=== PATIENT | female | born 2005 | race Two or more races ===

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

== ENCOUNTER 2024-01-29 11:30 | Outpatient (CLI) | payer OTHER | END 2024-01-29 11:31 | disposition home or self-care (01) | LOC: PRENATAL 11:30 | PROVIDERS: ATTEND Obstetrics & Gynecology Maternal & Fetal Medicine | DX: O26.843 Uterine size-date discrepancy, third trimester (principal); O36.8130 Decreased fetal movements, third trimester, not applicable or unspecified; Z3A.28 28 weeks gestation of pregnancy ==

== ENCOUNTER → 2024-03-06 14:02 | Outpatient (CLI) | payer OTHER | END | disposition home or self-care (01) | LOC: PRENATAL 14:02 | PROVIDERS: ATTEND Obstetrics & Gynecology Maternal & Fetal Medicine | DX: O26.849 Uterine size-date discrepancy, unspecified trimester (principal); O36.8199 Decreased fetal movements, unspecified trimester, other fetus; O60.00 Preterm labor without delivery, unspecified trimester; O98.919 Unspecified maternal infectious and parasitic disease complicating pregnancy, unspecified trimester; Z3A.34 34 weeks gestation of pregnancy ==

== ENCOUNTER 2024-03-18 10:00 | Outpatient (CLI) | payer OTHER ==
[2024-03-18 09:22] VITALS: BP 108/72
[2024-03-18] MEDS ORDERED: RINGERS SOLUTION,LACTATED 1,000 ML IV SCH (10:30)
[2024-03-18] MEDS ORDERED: FLUCONAZOLE 150 MG TABLET PO NR (10:35)
[2024-03-18 10:49] LABS: URINE APPEARANCE Clear; URINE BILIRRUBIN Negative (NEGATIVE); URINE BLOOD Negative; URINE COLOR Yellow; URINE GLUCOSE Negative (NEGATIVE); URINE KETONE Negative (NEGATIVE); URINE LEUKOCYTE Large; URINE NITRATE Negative; URINE PROTEIN Negative (NEGATIVE); URINE UROBILINOGEN 0.2 E.U./dl
[2024-03-18 10:53] LABS: URINE BACTERIA 1542.1 uL (0.0-1933); URINE EPITHELIAL CELLS 28.2 uL (0.0-38.8); URINE WBC 52.5 uL (0.0-23.2)
[2024-03-18] MEDS ORDERED: NIFEDIPINE 30 MG TAB.SA.OSM PO SCH (11:00)
[2024-03-18 11:02] LABS: URINE CAST 0.15 uL (0.0-1.40); URINE RBC 1.2 uL (0.0-20.8)
[2024-03-18 11:18] LABS: HEMATOCRIT 31.7 % (36.0-45.00); HEMOGLOBIN 10.2 g/dL (12.0-15.00); MEAN CELL VOLUME 77.6 fL (80.00-100.00); MEAN CORPUSCULAR HGB CONC 32.2 g/dl (32.0-36.0); PLATELET COUNT 159 K/uL (150-450); RED BLOOD COUNT 4.08 M/uL (4.00-6.00); RED CELL DISTRIBUTION WIDTH 15.9 % (11.5-14.5)
[2024-03-18] MEDS ORDERED: CEFAZOLIN SODIUM 1,000 MG VIAL IV SCH (14:30)
[2024-03-18 15:42] VITALS: BP 98/58
[2024-03-18 19:51] VITALS: BP 111/65
[2024-03-18 23:23] VITALS: BP 109/69
[2024-03-19 04:02] VITALS: BP 99/61
[2024-03-19 07:30] VITALS: BP 101/57
[2024-03-19] MEDS ORDERED: NIFEDIPINE 30 MG TAB.SA.OSM PO SCH (09:00)
[2024-03-19 12:12] VITALS: BP 112/69
[2024-03-19 16:01] VITALS: BP 109/72
[2024-03-19 19:04] VITALS: BP 109/72
== END 2024-03-19 19:04 | disposition home or self-care (01) ==
LOC: OBS/DEL 10:00
PROVIDERS: ATTEND Obstetrics & Gynecology Obstetrics
DX: O23.43 Unspecified infection of urinary tract in pregnancy, third trimester (principal); N39.0 Urinary tract infection, site not specified; Z3A.35 35 weeks gestation of pregnancy

== ENCOUNTER 2024-04-09 19:58 | Inpatient (IN) | payer OTHER ==
[~2024-04-09] VITALS: Ht 167.6 cm; Wt 72.6 kg
[2024-04-09 22:23] LABS: HEMATOCRIT 34.2 % (36.0-45.00); HEMOGLOBIN 11.1 g/dL (12.0-15.00); MEAN CELL VOLUME 77.3 fL (80.00-100.00); MEAN CORPUSCULAR HEMOGLOBIN 25.2 pg (27.00-32.0); MEAN CORPUSCULAR HGB CONC 32.6 g/dl (32.0-36.0); PLATELET COUNT 168 K/uL (150-450); RED BLOOD COUNT 4.43 M/uL (4.00-6.00); RED CELL DISTRIBUTION WIDTH 16.7 % (11.5-14.5)
[2024-04-09 22:26] LABS: PH,URINE 6.5 (5.0-8.0); URINE APPEARANCE Clear; URINE BILIRRUBIN Negative (NEGATIVE); URINE BLOOD Negative; URINE COLOR Yellow; URINE GLUCOSE Negative (NEGATIVE); URINE KETONE Negative (NEGATIVE); URINE LEUKOCYTE Moderate; URINE NITRATE Negative; URINE PROTEIN Negative (NEGATIVE); URINE UROBILINOGEN 0.2 E.U./dl
[2024-04-09 22:30] LABS: URINE BACTERIA 1539.6 uL (0.0-1933); URINE EPITHELIAL CELLS 32.9 uL (0.0-38.8); URINE WBC 20.5 uL (0.0-23.2)
[2024-04-09 22:35] VITALS: BP 110/70
[2024-04-09 22:41] LABS: INR < 0.93; PARTIAL THROMBOPLASTIN TIME 28.8 SECONDS (22.0-34.0)
[2024-04-09 22:43] VITALS: BP 110/70
[2024-04-09 23:41] VITALS: BP 106/66
[2024-04-10] VITALS (7 sets, daily range): BP systolic 94–114; BP diastolic 57–70
[2024-04-10] MEDS ORDERED: IRON325 MG PO (22:28)
[2024-04-10] MEDS ORDERED: RINGERS SOLUTION,LACTATED 1,000 ML IV SCH (22:30)
[2024-04-10] MEDS ORDERED: METRONIDAZOLE/SODIUM CHLORIDE 100 ML IV SCH (23:15)
[2024-04-11 04:09] VITALS: BP 123/78
[2024-04-11 07:32] VITALS: BP 116/65
[2024-04-11 11:55] VITALS: BP 117/7
[2024-04-11 15:12] VITALS: BP 115/70
[2024-04-11 20:23] VITALS: BP 115/75
[2024-04-12] VITALS (7 sets, daily range): BP systolic 97–125; BP diastolic 58–73
[2024-04-13 04:03] VITALS: BP 129/75
[2024-04-13 07:16] VITALS: BP 110/74
[2024-04-13 11:23] VITALS: BP 106/63
[2024-04-13] MEDS ORDERED: MISOPROSTOL 25 MCG/4 ML GEL.W.APPL VAG SCH (14:28)
[2024-04-13 15:31] VITALS: BP 129/53
[2024-04-13] MEDS ORDERED: MISOPROSTOL 25 MCG/4 ML GEL.W.APPL VAG ONE (19:00)
[2024-04-13 19:15] VITALS: BP 121/64
[2024-04-13] MEDS ORDERED: AMPICILLIN SODIUM 2,000 MG VIAL IV SCH (21:00)
[2024-04-13 23:57] VITALS: BP 121/78
[2024-04-14] VITALS (12 sets, daily range): BP systolic 112–137; BP diastolic 52–85
[2024-04-14] MEDS ORDERED: MEPERIDINE HCL/PF 50 MG/ML VIAL IV ONE (01:00)
[2024-04-14] MEDS ORDERED: PROMETHAZINE HCL 25 MG/ML AMPUL IV ONE (01:15)
[2024-04-14] MEDS ORDERED: OXYTOCIN 2,000 ML IV ONE (09:55)
[2024-04-14] MEDS ORDERED: OXYTOCIN 1,000 ML IV ONE (10:45)
[2024-04-14] MEDS ORDERED: ERYTHROMYCIN BASE OPHT 1GM EACH TUBE OP ONE (11:00)
[2024-04-14] MEDS ORDERED: LIDOCAINE HCL 1% 10ML VIAL IJ ONE (11:00)
[2024-04-14] MEDS ORDERED: CHLORHEXIDINE GLUCONATE 120 ML BOTTLE TOP ONE (11:00)
[2024-04-14] MEDS ORDERED: OXYTOCIN 1,000 ML IV SCH (12:00)
[2024-04-14] MEDS ORDERED: IBUprofen 400 MG TABLET PO PRN (12:00)
[2024-04-14] MEDS ORDERED: CHLORHEXIDINE GLUCONATE 120 ML BOTTLE TP SCH (12:00)
[2024-04-15 00:10] VITALS: BP 118/71
[2024-04-15 08:38] VITALS: BP 138/67
[2024-04-16] VITALS: BP 112/72
[2024-04-16 08:29] VITALS: BP 119/67
[2024-04-16 17:09] VITALS: BP 124/76
== END 2024-04-16 19:43 | disposition home or self-care (01) | DRG 807 ==
LOC: OBS/DEL 19:58 → LDR 04-10 20:23 → OB/GYN 04-14 11:30
PROVIDERS: ADMIT Obstetrics & Gynecology Obstetrics; ATTEND Obstetrics & Gynecology Obstetrics
PROC: 4A1HXCZ Monitoring of Products of Conception, Cardiac Rate, External Approach (ICD-10-PCS; 2024-04-10)
PROC: BY4FZZZ Ultrasonography of Third Trimester, Single Fetus (ICD-10-PCS; 2024-04-11)
PROC: 10E0XZZ Delivery of Products of Conception, External Approach (ICD-10-PCS; principal; 2024-04-13)
PROC: 3E033VJ Introduction of Other Hormone into Peripheral Vein, Percutaneous Approach (ICD-10-PCS; 2024-04-13)
PROC: 3E0P7VZ Introduction of Hormone into Female Reproductive, Via Natural or Artificial Opening (ICD-10-PCS; 2024-04-13)
DX: O36.8130 Decreased fetal movements, third trimester, not applicable or unspecified (principal); O26.843 Uterine size-date discrepancy, third trimester; O26.893 Other specified pregnancy related conditions, third trimester; R10.2 Pelvic and perineal pain; Z37.0 Single live birth; Z3A.39 39 weeks gestation of pregnancy; Z20.822 Contact with and (suspected) exposure to COVID-19

== ENCOUNTER 2025-02-13 19:15 | Emergency (ER) | payer OTHER ==
[~2025-02-13] VITALS: Ht 162.6 cm; Wt 54.4 kg
[~2025-02-13 19:15] MED LIST changes: +IRON325 MG PO
[2025-02-13 19:49] VITALS: BP 114/71; O2SAT 99
[2025-02-13 20:27] LABS: BASO % 0.3 % (0.1-1.2); EOS # 0.15 (0.04-0.54); EOS % 1.6 % (0.7-7.0); LYMPH # 2.16 (1.18-3.74); LYMPH % 22.9 % (19.3-53.1); MEAN PLATELET VOLUME 10.50 fl (9.4-12.4); MONO # 0.61 (0.24-0.82); MONO % 6.5 % (4.7-12.5); NEUT # 6.47 (1.56-6.13); NEUT % 68.5 % (34.0-71.1); RED CELL DISTRIBUTION WIDTH 13.8 % (11.6-14.4)
[2025-02-13 21:21] LABS: COVID-19 AG NEGATIVE (NEGATIVE)
[2025-02-13] MEDS ORDERED: ZYRTEC10 MG PO (22:12)
== END 2025-02-13 22:35 | disposition home or self-care (01) ==
LOC: ER 19:15
PROVIDERS: General Practice
DX: O98.512 Other viral diseases complicating pregnancy, second trimester (principal); B34.8 Other viral infections of unspecified site; Z3A.16 16 weeks gestation of pregnancy; Z20.822 Contact with and (suspected) exposure to COVID-19

== ENCOUNTER → 2025-03-19 13:50 | Outpatient (CLI) | payer OTHER ==
[~2025-03-19 13:50] MED LIST changes: +ZYRTEC10 MG PO
== END | disposition home or self-care (01) ==
LOC: PRENATAL 13:50
PROVIDERS: ATTEND Obstetrics & Gynecology Maternal & Fetal Medicine
DX: O44.00 Complete placenta previa NOS or without hemorrhage, unspecified trimester (principal)

== ENCOUNTER 2025-06-13 09:55 | Outpatient (CLI) | payer OTHER | END 2025-06-13 09:57 | disposition home or self-care (01) | LOC: PRENATAL 09:55 | PROVIDERS: ATTEND Obstetrics & Gynecology Maternal & Fetal Medicine | DX: O26.843 Uterine size-date discrepancy, third trimester (principal); O99.013 Anemia complicating pregnancy, third trimester; Z3A.32 32 weeks gestation of pregnancy ==